=== PATIENT | male | born 1940 | race Caucasian/White ===

== ENCOUNTER 2022-07-13 08:37 | Emergency (ER) | payer MEDICARE, SELFPAY ==
--- NOTE | ~2022-07-13 | XR_ITS ---
EXAMINATION: [id number] INDICATION: Left-sided chest pain after fall TECHNIQUE: A frontal view of the chest and 3 views of the left ribs were obtained on four radiographs . COMPARISON: None. FINDINGS: The lungs are free of acute opacities. No pleural effusion or pneumothorax. The cardiomedia stinal silhouette is normal. There are nondisplaced posterior fractures of the left eighth and ninth ribs IMPRESSION: 1. Nondisplaced posterior fractures of the left eighth and ninth ribs. 2. No acute cardiopulmonary abnormality. Reviewed, dictated and finalized at location B.
[2022-07-13 08:59] VITALS: BP 157/82; PULSE 68; RESP 18; TEMP 36; O2SAT 100
--- NOTE | 2022-07-13 09:00 | ED.FALL ---
HPI - Fall General Chief Complaint: Fall Stated Complaint: Fall, Back Pain Time Seen by Provider: 07/13/22 09:00 Source: patient and RN notes reviewed Mode of arrival: ambulatory Limitations: no limitations History of Present Illness HPI Narrative: 82-year-old male presents to the [facility] with complaints of back pain after falling. Patient states that he fell 2 weeks ago hitting the left posterior rib area. No bruising or swelling noted. Tender to palpation. Denies any shortness of breath. Denies fevers. Denies hitting head or loss of consciousness. Related Data Home Medications Medication Instructions Recorded Confirmed hydrochlorothiazide 25 mg tablet 25 mg DAILY 07/13/22 07/13/22 levothyroxine 150 mcg tablet 150 mcg DAILY 07/13/22 07/13/22 potassium chloride 10 mEq 10 meq PO DAILY 07/13/22 07/13/22 tablet,extended release quinapril 40 mg tablet 40 mg DAILY 07/13/22 07/13/22 simvastatin 40 mg tablet 40 mg DAILY 07/13/22 07/13/22 Allergies Allergy/AdvReac Type Severity Reaction Status Date / Time No Known Allergies Allergy Verified 07/13/22 09:17 Review of Systems Review of Systems: All systems reviewed & are unremarkable except as noted in HPI and below Constitutional: Constitutional: Reports no additional constitutional complaints, Denies chills and Denies fever(s) Eyes: Eyes: Reports no additional eye complaints ENT: Reports system reviewed and no additional complaints, except as documented Cardiovascular: Cardiovascular: Reports no additional cardiovascular complaints Respiratory: Respiratory: Reports no additional respiratory complaints Gastrointestinal: Gastrointestinal: Reports no additional gastrointestinal complaints Musculoskeletal: Musculoskeletal: Reports as per HPI Integumentary/Breasts: Skin/Breast: Reports system reviewed and no additional complaints, except as docu Neurologic: Reports system reviewed and no additional complaints, except as documented Psychiatric: Psychiatric: Reports no additional psychiatric complaints Allergic/Immunologic: Allergic/Immunologic: Reports no additional allergic/immunologic complaints PMFSH Past Medical History Medical History (Updated 07/13/22 @ 09:50 by Eva Spence APRN) High cholesterol History of high blood pressure Thyroid disease Comments At the time of my signature, I reviewed and agree with the nursing past medical, surgical, social, and family history. There is no relevant family history pertinent to the patient complaint. Exam Const: General: healthy appearing, no acute distress, alert and well nourished Nutritional Appearance: well nourished Orientation/consciousness: patient oriented x3 Limitations: no limitations HENMT: Head: normal to inspection Ears: external ears normal Eyes: General: appearance normal, both eyes and all related structures Pupils: Equal, round and reactive pupils present Neck: Neck: normal visual inspection, no lymphadenopathy and no meningeal signs Chest: Chest palpation & inspection: normal inspection of the chest Resp: Effort & Inspection: normal respiratory effort and no use of accessory muscles Auscultation: clear to auscultation bilaterally, no crackles, no rales, no rhonchi and no wheezes Cardio: Rate: regular rate Rhythm: regular rhythm GI: GI Palp: Yes Soft to palpation and No Tenderness to palpation present (GI) Back/Spine/Pelvis: Back/spine/pelvis image: 1. Tender to palpation without bruising, swelling. States this is where he hit his back when he fell 2 weeks ago. Skin: General skin exam: normal color Rashes: no rashes Wounds: no wounds Neuro: General: patient oriented x3, moves all extremities, no meningeal signs and no focal motor deficits Cranial nerves: Yes Equal, round and reactive pupils present Speech: normal speech Gait exam (Neuro): Normal gait present Extrem: General: normal to inspection, full ROM and capillary refill normal Psych: Appearance: gross
== END 2022-07-13 10:12 | disposition home or self-care (01) ==
PROVIDERS: Emergency Provider Nurse Practitioner; PCP Physician Assistant Medical
DX: S22.41XA Multiple fractures of ribs, right side, initial encounter for closed fracture (principal); E78.00 Pure hypercholesterolemia, unspecified; I10 Essential (primary) hypertension; E03.9 Hypothyroidism, unspecified
CPT/HCPCS: 71101; 99203; G0463

== ENCOUNTER 2023-12-14 20:31 | Emergency (ER) | payer MEDICARE, SELFPAY ==
[2023-12-14 20:34] VITALS: BP 93/63; PULSE 86; RESP 19; TEMP 36.3; O2SAT 98
[2023-12-14 22:33] VITALS: PULSE 62; RESP 19; O2SAT 96
[2023-12-14 22:45] VITALS: BP 117/65; PULSE 73; RESP 20; O2SAT 95
--- NOTE | 2023-12-14 22:48 | ED.EXTPRO ---
HPI - Extremity Problem General Chief complaint: Extremity Problem,Nontraumatic Stated complaint: Right feet pain/redness/swelling Time Seen by Provider: 12/14/23 22:11 History of Present Illness HPI Narrative: This is an 83-year-old male, with no significant past medical history, who presents to the emergency department complaining of itching and redness between the toes of the right foot. Patient states this been going on for the past several days without spread to the rest of the leg. He denies associated fevers, chills or leg pain. Related Data Home Medications Medication Instructions Recorded Confirmed hydrochlorothiazide 25 mg tablet 25 mg DAILY 07/13/22 07/13/22 levothyroxine 150 mcg tablet 150 mcg DAILY 07/13/22 07/13/22 potassium chloride 10 mEq 10 meq PO DAILY 07/13/22 07/13/22 tablet,extended release quinapril 40 mg tablet 40 mg DAILY 07/13/22 07/13/22 simvastatin 40 mg tablet 40 mg DAILY 07/13/22 07/13/22 Allergies Allergy/AdvReac Type Severity Reaction Status Date / Time No Known Allergies Allergy Verified 12/14/23 20:37 Review of Systems Review of Systems: CONSTITUTIONAL: Denies fever, chills, or sweats. CARDIOVASCULAR: Denies chest pain, palpitations, or edema. RESPIRATORY: Denies cough or dyspnea. GASTROINTESTINAL: Denies abdominal pain, nausea, vomiting, or diarrhea. GENITOURINARY: Denies dysuria or hematuria. SKIN: Erythema and itching between the toes of the right foot MUSCULOSKELETAL: Denies back pain, joint pain, or myalgia. NEUROLOGIC: Denies headache, numbness, dizziness, or weakness. PSYCHIATRIC: Denies anxiety or depression. PMFSH Past Medical History Medical History High cholesterol History of high blood pressure Thyroid disease Social History Social History (Updated 12/14/23 @ 22:57 by Madhav Woodward MD) Smoking status: Never smoker Alcohol intake: never Substance use: never Exam Narrative: GENERAL: Well-developed, well-nourished, and in no acute distress. HEAD: Normocephalic, atraumatic. EYES: PERRLA and EOMI. CHEST: Clear to auscultation. No respiratory distress. No wheezes rales or rhonchi HEART: Regular rate and rhythm. No murmur heard. Normal peripheral pulses. EXTREMITIES: Normal range of motion. No edema. SKIN: There is erythema and maceration of the skin between the toes of the right foot consistent with tinea pedis. There is no other noted spreading her. The skin is otherwise warm, dry, no rash. NEURO: Alert and oriented x3. No focal deficit. Moving all 4 limbs spontaneously PSYCH: Normal mood and affect. Course Course Emergency Course: 22:50 - The patient's exam is consistent with tinea pedis. Will treat with topical ketoconazole and recommend primary care follow-up. I discussed the findings and recommendations with The patient. Discussed return and emergency precautions including signs/symptoms of cellulitis. The patient voiced understanding and agreement with the plan. All questions answered to his satisfaction. Vital Signs Vital signs: Vital Signs Temperature 97.4 F L 12/14/23 20:34 Pulse Rate 86 12/14/23 20:34 Respiratory Rate 19 12/14/23 20:34 Blood Pressure 93/63 L 12/14/23 20:34 Pulse Oximetry 98 12/14/23 20:34 Oxygen Delivery Room Air 12/14/23 20:34 Temperature 97.4 F L 12/14/23 20:34 Pulse Rate 86 12/14/23 20:34 Respiratory Rate 19 12/14/23 20:34 Blood Pressure 93/63 L 12/14/23 20:34 Pulse Oximetry 98 12/14/23 20:34 Oxygen Delivery Room Air 12/14/23 20:34 MDM - Extremity (Nontraumatic) MDM Narrative Medical decision making narrative: plan: Topical antifungals, primary care follow-up Differential Diagnosis Differential diagnosis: Likely cellulitis and other (tinea pedis, other) Discharge Plan Discharge Clinical Impression: Tinea pedis Qualifiers: Laterality: right Qualified Code(s): B35.3 - Tinea pedis Pa
== END 2023-12-14 23:39 | disposition home or self-care (01) ==
PROVIDERS: Emergency Provider Preventive Medicine Aerospace Medicine; PCP Family Medicine
DX: B35.3 Tinea pedis (principal); I10 Essential (primary) hypertension; E78.00 Pure hypercholesterolemia, unspecified; E07.9 Disorder of thyroid, unspecified
CPT/HCPCS: 99283